=== PATIENT | female | born 1995 | race Caucasian/White ===

== ENCOUNTER 2024-01-20 12:01 | Outpatient (CLI) | payer BC, SELFPAY | END 2024-01-20 12:02 | disposition home or self-care (01) | LOC: NFLDREF 12:02 | PROVIDERS: Visit Provider Registered Nurse | DX: Z34.92 Encounter for supervision of normal pregnancy, unspecified, second trimester (principal) | CPT/HCPCS: 86592 ==

== ENCOUNTER 2024-02-10 13:37 | Outpatient (CLI) | payer BC, SELFPAY ==
--- NOTE | 2024-02-10 14:00 | CRLHL7_ITS ---
For Patients: As a result of the Century Cures Act, medical imaging exams and procedure reports are released immediately into your electronic medical record. You may view this report before your referring provider. If you have questions, please contact your health care provider. INDICATION: Evaluate anatomy. COMPARISON: none TECHNIQUE: Real time morejon scale imaging of the fetus was performed as well as color Doppler analysis of the umbilical vessels. FINDINGS: Sonographic imaging demonstrates a single living intrauterine gestation. Fetus demonstrates a regular cardiac rate of 144 beats per minute. Fetus has a vertex position. The placenta lies anteriorly without evidence of placenta previa. Placental edge 4.0 cm from the internal cervical os. Amniotic fluid volume appears normal. Single deepest vertical pocket: 5.0 cm. The cervix is closed and measures 3.1 cm in length. The composite ultrasound gestational age is calculated at 19 weeks 5 days with an estimated sonographic due date of 07/01/2024. The estimated weight is 311 grams which lies at the 31st %. The following biometric measurements were obtained: Biparietal diameter: 4.4 cm/19 weeks 3 days 24th% Head circumference: 17.2 cm/19 weeks 5 days 30th% Abdominal circumference: 14.5 cm/19 weeks 5 days 37th% Femur length: 3.1 cm/19 weeks 5 days 33rd% The HC/AC ratio measures: 1.19 range (1.08-1.26) On anatomic survey, there is a normal appearance of the cerebral ventricles, cavum septi pellucidi, cisterna magna and cerebellum. The nose, lips, and facial profile appear normal. The cervical, thoracic and lumbar spine are well visualized and appear normal. There is a normal four-chamber heart view and the left and right ventricular outflow tracts appear normal. The diaphragm and stomach appear normal. The kidneys and bladder also appear normal. There is a normal three-vessel cord and cord insertion site. The four extremities appear normal. IMPRESSION: Normal OB ultrasound exam with concordance of clinical and sonographic dating. No intrinsic abnormalities noted on anatomic survey. Dictated by Bryn Galvin MD @ 02/11/2024 7:36:11 AM (Electronically Signed)
== END 2024-02-10 13:38 | disposition home or self-care (01) ==
LOC: US 13:38
PROVIDERS: Visit Provider Registered Nurse
DX: Z34.92 Encounter for supervision of normal pregnancy, unspecified, second trimester (principal); Z3A.19 19 weeks gestation of pregnancy
CPT/HCPCS: 76805

== ENCOUNTER 2024-03-30 15:02 | Outpatient (CLI) | payer BC, SELFPAY ==
[2024-03-30 15:09] VITALS: BP 133/59; PULSE 109; PULSE 97; PULSE 98; O2SAT 93; O2SAT 95
[2024-03-30 15:14] VITALS: PULSE 91; O2SAT 96
[2024-03-30 15:17] VITALS: RESP 18; TEMP 37.5
[2024-03-30 15:19] VITALS: PULSE 95; O2SAT 97
[2024-03-30 16:23] VITALS: TEMP 36.6
== END 2024-03-30 18:08 | disposition home or self-care (01) ==
LOC: OB OUT 15:02 → OB 15:02
PROVIDERS: Visit Provider Midwife
DX: Z34.92 Encounter for supervision of normal pregnancy, unspecified, second trimester (principal); Z3A.27 27 weeks gestation of pregnancy
CPT/HCPCS: G0463

== ENCOUNTER 2024-04-05 10:59 | Outpatient (CLI) | payer BC, SELFPAY | END 2024-04-05 11:00 | disposition home or self-care (01) | LOC: NFLDREF 04-08 08:02 | PROVIDERS: Visit Provider Midwife | DX: Z34.03 Encounter for supervision of normal first pregnancy, third trimester (principal) | CPT/HCPCS: 86592 ==

== ENCOUNTER 2024-04-13 08:36 | Outpatient (CLI) | payer BC, SELFPAY | END 2024-04-13 08:37 | disposition home or self-care (01) | LOC: NFLDREF 04-18 07:02 | PROVIDERS: Visit Provider Midwife | DX: R73.09 Other abnormal glucose (principal) | CPT/HCPCS: 82951; 82952 ==

== ENCOUNTER 2024-05-27 15:08 | Inpatient (IN) | payer BC, SELFPAY ==
[2024-05-27] VITALS (51 sets, daily range): BP systolic 108–173; BP diastolic 53–77; PULSE 69–114; RESP 16; TEMP 36.6–37; O2SAT 93–98; BMI 40.4
--- NOTE | 2024-05-27 13:02 | P.OBLDTN_ITS ---
OB - Triage/Final Diagnosis Visit Information Date Seen: 05/27/24 Narrative: The patient is a 29 year old 1 para 0 at 35w2d weeks gestation by 1st tri US at 7wks, who presents with elevated BPs and headache with vision changes. She used her father's BP cuff last night and reports severe range BPs x 3, as well as this morning. She thought it was only because she was busy yesterday so did not notify us last evening and wanted to sleep. She reports REID with blurry vision for the last week intermittently and currently rating REID sith severity of 3-4/10. She states she just doesn't feel good and notes very significant swelling of her hands. Stat labs ordered, Tylenol given, serial BPs ordered. OB H&P Patient's care began at [facility] and transfered to [facility] at 17w gestion. She is dated by first trimester US. EDC is 06/29/2024. She has had routine visits since that time.?? PFSH PFSH Active Problems (Updated 05/18/24 @ 16:58 by Shruthi Mack CNM) Obesity (BMI 35.0-39.9 without comorbidity) (Acute) ?E66.9 - Obesity, unspecified (ICD-10) (Acute) ?Z34.90 - Encounter for supervision of normal , unspecified, unspecified trimester (ICD-10)ADHD (attention deficit hyperactivity disorder) (Acute) ?F90.9 - Attention-deficit hyperactivity disorder, unspecified type (ICD-10) Medical History (Updated 05/18/24 @ 16:58 by Shruthi Mack CNM) ADHD (attention deficit hyperactivity disorder) ?F90.9 - Attention-deficit hyperactivity disorder, unspecified type (ICD- 10)Migraine ?G43.909 - Migraine, unspecified, not intractable, without status migrainosus (ICD-10)H/O cold sores ?Z86.19 - Personal history of other infectious and parasitic diseases (ICD-10) Surgical History (Updated 01/21/24 @ 10:21 by Radhika Negron CNP) S/P LASIK surgery of both eyes ?Z98.890 - Other specified postprocedural states (ICD-10) Expected Delivery Route/Plan CNMWaterbirth: declines, interested in unmedicated with nitrous Control PP: condomsFeeding Plan: [place] meds AMTSL: Ok with Specific Issues/Plans ; Partner: Linda in December. It is a boy! #BMI>35: Consider weekly BPP &/or NST starting 37w: ok with this, ordered #Failed 1 hour gct (141), passed 3 hour gct #BP elevated at 29.5 weeks. Return visit the following day BP normotonsive Tx at 17.0 weeks gestation from [place] [facility] Labs (12/10/2023): Blood type: O+, antibody screen negative. Hgb: 13.7 Platelets: 243 Rubella: Immune Varicella: not Immune RPR: not done (completed later at [facility]) HBsAg: non-reactive Hep C: negative HIV: negative UC: negative GC/Chlamydia: negative/negative Pap (09/13/2023): NILM Genetic screening: Naterra-Low risk for aneuploidy Imagin11/12/23 7w1d: SLIUP LUIZ by this US of 06/29/2024 02/10/2024: Normal OB ultrasound exam with concordance of clinical and sonographic dating. No intrinsic abnormalities noted on anatomic survey. Evaluation Laboratory results: Laboratory Tests 05/27/24 05/27/24 Range/Units Unknown 12:49 WBC Pending RBC Pending Hgb Pending Hct Pending MCV Pending MCH Pending MCHC Pending Plt Count Pending BUN Pending Creatinine Pending Estimated GFR Pending AST Pending ALT Pending Urine Creatinine Pending Protein/Creatinin Ratio Pending Urine Total Protein Pending Vital signs: Vital Signs - 24 hr 05/27/24 12:20 05/27/24 12:30 05/27/24 12:31 Temperature 98.0 F Pulse Rate 114 H 93 Respiratory Rate 16 Blood Pressure 173/76 H 143/65 H 05/27/24 12:48 Temperature Pulse Rate 93 Respiratory Rate Blood Pressure 144/73 H Comments: Vitals Reviewed Constitutional:? Alert and oriented x3 HEENT:? Normocephalic, atraumatic Abdomen:? Soft, nontender, and gravid. Vertex by Abner's. Extremities:? No edema or erythema. Reflexes Left leg-+1/4, Right leg +3/4, neg clonus BLE Cervix: deferred NST: 1350bpm/moderate variability/accelerations present/decelerations absent/contractions intermittent, irregular and not felt by patient Final Diagnosis (1) Pre-eclampsia, severe: Status: Acute Problem details: PCR 2.0 with severe range blood pressure x 2. REID present. BMZ given. Dr Amaya consulted and transfer to OB service arranged. Planning admit, magnesium therapy, induction of labor, . SL placed on arrival. Other labs are normal. (2) : Status: Acute
[2024-05-27 13:16] LABS: Hematocrit 40.6 % (33.0-51.0); Hemoglobin* 13.4 gm/dL (12.0-16.0); Mean Corpuscular HGB Conc 33 gm/dL (32-36); Mean Corpuscular Hemoglobin 30 pg (26-34); Mean Corpuscular Volume 90 fL (80-100); Platelet Count* 203 K/uL (140-440); Red Blood Count 4.51 m/uL (4.00-5.20); White Blood Count* 9.96 K/uL (4.50-11.00)
[2024-05-27 13:20] LABS: Slide Review Reflex No
[2024-05-27 13:32] LABS: Alanine Aminotransferase* 18 U/L (4-35); Aspartate Amino Transferase* 25 U/L (12-35); Blood Urea Nitrogen* 16 mg/dL (5-24); Creatinine* 0.7 mg/dL (0.5-1.5); Estimated Glomerular Filt Rate 121 ml/min
[2024-05-27 13:32] LABS: Total Protein Urine 174 mg/dL
[2024-05-27 13:33] LABS: Protein Creatinine Ratio Urine 2.05 (0-0.19)
[2024-05-27] MEDS: BETAMETHASONE SOD PHOS/ACETATE 6 MG/ML ML 12 MG IM (14:05)
[2024-05-27] MEDS: LABETALOL HCL 5 MG/ML inj IVP (14:22)
[2024-05-27] MEDS: LACTATED RINGERS 1000 ML 1,000 ML 75 ML IV (14:30)
[2024-05-27] MEDS: MAGNESIUM IV 4 GM/100 ML PIGGYBACK IVPB (14:30)
--- NOTE | 2024-05-27 14:57 | P.OBCN_ITS ---
OB - CN: HPI Date of Consult Time Seen by Provider: 14:20 Date Seen: 05/27/24 Patient: [facility] Patient Consult date: 05/27/24 Requesting Physician: Abigail Harrison CNM Primary Care Provider: Not a Local Provider Consult Narrative Reason for consult: other (Severe pre-eclampsia) Narrative: The patient is a 29 year old G 1 P 0 at 35 2/7 weeks gestation that was admitted to the Center from triage for pre-eclampsia with severe features. Patient states that she was not feeling right last evening, and used her father's blood pressure cuff to check her blood pressure. She got a reading that was 180s systolic. This morning, she was out shopping and took her blood pressure at a pharmacy, and got another reading that was in the severe range, 160s systolic. She called the center and was evaluated in triage, where she had two more blood pressures in the severe range over 2-3 hours of monitoring. Labs were done, which were normal except for significant proteinuria. Diagnosis was made of preeclampsia with severe features. She does admit to increased swelling over the last week, and a persistent headache, unlike a migraine, with visual changes for the last two days. Her fetus remains active. History of Present Dating criteria: based on 1st trimester US only care: good care Ultrasounds: normal 1st trimester US and normal mid trimester US complications: preeclampsia Type: severe Medical Complications: BMI>35 Abnormal 1-h GTT with normal 3-h GTT elevated BP reading without diagnosis of hypertension History History 1 Elective abortions Para 0 Spontaneous abortions Hx # Term Pregnancies Ectopic pregnancies Hx # Pregnancies Multiple births Number of Living Children 0 Labs Blood type: O (+) positive Rubella: immune RPR/VDLR: nonreactive GBS status: unknown HBsAG: negative OB Labs: OB Labs (12/10/2023): Blood type: O+, antibody screen negative. Hgb: 13.7 Platelets: 243 Rubella: Immune Varicella: not Immune RPR: not done (completed later at [facility]) HBsAg: non-reactive Hep C: negative HIV: negative UC: negative GC/Chlamydia: negative/negative Pap (09/13/2023): NILM Genetic screening: Naterra-Low risk for aneuploidy Review of Systems Status of ROS: Reports: 10 or more systems reviewed and unremarkable except as noted in History and below PFSH PFSH Medical History ADHD (attention deficit hyperactivity disorder) ?F90.9 - Attention-deficit hyperactivity disorder, unspecified type (ICD-10) Migraine ?G43.909 - Migraine, unspecified, not intractable, without status migrainosus (ICD-10) H/O cold sores ?Z86.19 - Personal history of other infectious and parasitic diseases (ICD- 10) Surgical History S/P LASIK surgery of both eyes ?Z98.890 - Other specified postprocedural states (ICD-10) Social History Narrative: Working in a penitentiary. What is your current living situation?: I presently have a place to live Problems where you live: no known problems In the past 12 months, utilities in danger of being shut off: no In past 12 months, lack of transportation kept you from medical appts, meetings, work, or getting things needed for daily living: no In the past 12 mos, have been you worried that your food would run out before you had money to buy more?: never true In the past 12 mos, the food you bought just didn't last and you didn't have money to buy more?: never true Smoking Status: Never smoker How often does anyone, including family, friends and others, physically hurt you : never How often does anyone, including family, friends and others, insult or talk down to you: rarely How often does anyone, including family, friends and others, threaten you with h arm: never How often does anyone, including family, friends and others, scream or curse at you: never Little interest or pleasure in doing things: not at all Feeling down, depressed, or hopeless: not at all Meds Home Medications and Allergies Home Medications ?Medication ?Instructions ?Recorded ?Confirmed ?Type aspirin 81 mg tablet,delayed 81 mg PO QDAY 01/20/24 05/27/24 History release (Adult Aspirin Regimen) docosahexaenoic acid 200 mg 200 mg PO DAILY 01/20/24 05/27/24 History capsule ( DHA) valacyclovir 500 mg tablet 500 mg PO BID PRN 01/20/24 05/27/24 History (Valtrex) Allergies Allergy/AdvReac Type Severity Reaction Status Date / Time amoxicillin Allergy Mild Rash Verified 05/27/24 12:25 OB - H&P: Exam Physical Exam: Vital signs: Temp Pulse Resp BP 98.0 F 86 16 144/65 H 05/27/24 12:30 05/27/24 14:53 05/27/24 12:30 05/27/24 14:53 Constitutional: Constitutional: no acute distress Routine HEENT Exam: Head: Present normal inspection Eye: Present normal appearance Routine Neck Exam: Neck: Present full ROM Routine Respiratory Exam: Respiratory: Present CTA bilaterally; Absent crackles, rhonchi or wheezes Routine Cardiovascular Exam: Cardiovascular: RRR Routine Abdominal Exam: Abdominal: Present normal bowel sounds and soft; Absent tenderness Comments: Gravid, fundal height consistent with dates, vertex presentation by [place]'s Routine Exam: Comments: Normal external female genitalia. GBS swab obtained. Cervix posterior, moderate consistency, 1 cm dilated, 50% effaced, with vertex at a minus three station. Detailed Labor and Delivery Exam: Patient Gravid: Yes Dilation (cm): 1 Effacement (%): 50 Cervix position: posterior Consistency: medium Fetus (Single): Station: -3 Amniotic Membrane Status: intact Heart Rate Baseline: 140 Monitor Accelerations: Present Monitor Decelerations: None Mcfp Variability: Moderate (6-25) Routine Extremities Exam: Extremities: Present normal inspection; Absent calf tenderness or pedal edema Routine Psychiatric Exam: Present normal affect OB - Results Labs Labs: Short CBC 05/27/24 Range/Units 12:49 WBC 9.96 (4.50-11.00) K/uL Hgb 13.4 (12.0-16.0) gm/dL Hct 40.6 (33.0-51.0) % Plt Count 203 (140-440) K/uL BMP 05/27/24 12:49 BUN 16 Creatinine 0.7 Liver Function 05/27/24 Range/Units 12:49 AST 25 (12-35) U/L ALT 18 (4-35) U/L OB - CN: A/P Assessment and Plan (1) Pre-eclampsia, severe: Problem details: PCR 2.0 with severe range blood pressure x 2. REID present. BMZ given. Dr Amaya consulted and transfer to OB service arranged. Planning admit, magnesium therapy, induction of labor, . SL placed on arrival. Other labs are normal. Status: Acute (2) : Status: Acute Plan 1. Admit to Labor and Delivery. Patient's care will be transferred from [facility] to OB service. The patient and I discussed her diagnosis and the recommendation for induction labor. She understands that there is a possibility that her might need to be transferred to higher level of care following delivery if the infant has needs that can not be provided here at [facility]. 2. Magnesium sulfate IV for seizure prophylaxis per protocol. The medication risks and benefits were reviewed with the patient. 3. IV labetalol as needed to treat severe-range blood pressure p.r.n.. 4. Began cervical ripening in preparation for labor induction. Relative risks and benefits reviewed for both intravaginal or oral misoprostol and intracervical Cook catheter with slow Pitocin infusion. Will place a Cook catheter now and start slow Pitocin infusion at 9:00 p.m. this evening. 5. Dr. Arceo will assume care at 7:00 a.m. tomorrow morning. She has been notified. Total Time Spent Total time spent: 60 minutes
[2024-05-27] MEDS: MAGNESIUM Infusion 40 GM/1,000 ML IV.SOLN IVPB (15:15)
[2024-05-27 20:00] LABS: Mean Corpuscular HGB Conc 33 gm/dL (32-36); Mean Corpuscular Hemoglobin 30 pg (26-34); Mean Corpuscular Volume 90 fL (80-100); Platelet Count* 224 K/uL (140-440); Red Blood Count 4.66 m/uL (4.00-5.20); White Blood Count* 14.29 K/uL (4.50-11.00)
[2024-05-27 20:01] LABS: Slide Review Reflex No
[2024-05-27 20:19] LABS: Alanine Aminotransferase* 20 U/L (4-35); Aspartate Amino Transferase* 29 U/L (12-35); Blood Urea Nitrogen* 14 mg/dL (5-24); Creatinine* 0.7 mg/dL (0.5-1.5); Est. Creatinine Clearance* 90.29; Estimated Glomerular Filt Rate 121 ml/min
[2024-05-27] MEDS: OXYTOCIN 30 unit/500 ML in NS 30 UNIT/500 ML BAG IVPB (21:00)
--- NOTE | 2024-05-27 21:59 | PM.OBPNVD1 ---
OB - PN:Subj Subjective Date Seen: 05/27/24 OB - PN: Obj Exam Physical Exam: Vital signs: Temp Pulse Resp BP Pulse Ox 98.4 F 91 16 138/63 97 05/27/24 19:30 05/27/24 21:14 05/27/24 21:14 05/27/24 21:14 05/27/24 20:16 OB - PN: Obj Data Labs Labs: Laboratory Results - last 24 hr 05/27/24 05/27/24 05/27/24 12:49 19:32 Unknown WBC 9.96 14.29 H RBC 4.51 4.66 Hgb 13.4 14.0 Hct 40.6 42.0 MCV 90 90 MCH 30 30 MCHC 33 33 Plt Count 203 224 BUN 16 14 Creatinine 0.7 0.7 Estimated Creat Clear 90.29 Estimated GFR 121 121 AST 25 29 ALT 18 20 Urine Creatinine 85.0 Protein/Creatinin Ratio 2.05 H Urine Total Protein 174 Blood Type O Positive Antibody Screen NEGATIVE OB - PN: A/P Delivery Assessment and Plan (1) Pre-eclampsia, severe: Problem details: PCR 2.0 with severe range blood pressure x 2. REID present. BMZ given. Dr Amaya consulted and transfer to OB service arranged. Planning admit, magnesium therapy, induction of labor, . SL placed on arrival. Other labs are normal. Status: Acute (2) : Status: Acute
[2024-05-28] VITALS (39 sets, daily range): BP systolic 124–158; BP diastolic 55–91; PULSE 75–190; RESP 15–18; TEMP 36.4–37; O2SAT 82–97
[2024-05-28 01:03] LABS: Hematocrit 39.6 % (33.0-51.0); Hemoglobin* 13.4 gm/dL (12.0-16.0); Mean Corpuscular HGB Conc 34 gm/dL (32-36); Mean Corpuscular Hemoglobin 30 pg (26-34); Mean Corpuscular Volume 90 fL (80-100); Platelet Count* 204 K/uL (140-440); Red Blood Count 4.41 m/uL (4.00-5.20); White Blood Count* 14.26 K/uL (4.50-11.00)
[2024-05-28 01:04] LABS: Slide Review Reflex No
[2024-05-28 01:20] LABS: Creatinine* 0.8 mg/dL (0.5-1.5); Estimated Glomerular Filt Rate 103 ml/min
[2024-05-28 01:21] LABS: Alanine Aminotransferase* 21 U/L (4-35); Blood Urea Nitrogen* 16 mg/dL (5-24)
[2024-05-28 01:22] LABS: Aspartate Amino Transferase* 28 U/L (12-35)
[2024-05-28] MEDS: LACTATED RINGERS 1000 ML 1,000 ML 75 ML IV ×2 (03:31→18:57)
[2024-05-28 07:47] LABS: Hematocrit 40.4 % (33.0-51.0); Hemoglobin* 13.7 gm/dL (12.0-16.0); Mean Corpuscular HGB Conc 34 gm/dL (32-36); Mean Corpuscular Hemoglobin 31 pg (26-34); Mean Corpuscular Volume 90 fL (80-100); Platelet Count* 219 K/uL (140-440); Red Blood Count 4.48 m/uL (4.00-5.20); White Blood Count* 17.04 K/uL (4.50-11.00)
[2024-05-28 07:53] LABS: Slide Review Reflex No
[2024-05-28 08:02] LABS: Aspartate Amino Transferase* 31 U/L (12-35); Blood Urea Nitrogen* 17 mg/dL (5-24); Creatinine* 0.7 mg/dL (0.5-1.5); Est. Creatinine Clearance* 90.29; Estimated Glomerular Filt Rate 121 ml/min
[2024-05-28 08:03] LABS: Alanine Aminotransferase* 21 U/L (4-35)
--- NOTE | 2024-05-28 09:52 | P.OBPN_ITS ---
Subjective Time Seen by Provider: 08:30 Date Seen: 05/28/24 Narrative: Pt with PreEwSF based on severe ranging BP requiring 20mg of labetalol yesterday. Currently on magnesium sulfate for seizure prophylaxis. Blood pressure overnight: normal to mild ranging BP. Denies any persistent headache, vision changes, SOB, right upper quadrant/epigastric pain, or rapidly expanding edema. PreE labs within normal limits. Objective Vital Signs: Last Vital Signs Temp 98 F 05/28/24 09:23 Pulse 92 05/28/24 09:23 Resp 17 05/28/24 09:23 BP 144/71 H 05/28/24 09:23 Pulse Ox 96 05/28/24 09:25 Pelvic Exam Dilation (cm): 4 Effacement (%): 50 Station: -2 Comments: Patient consented to AROM AROM@ 0833 with clear fluid. Patient tolerated it well. Contractions Monitor mode: External Contraction pattern: Irregular Contraction intensity: Mild Pitocin Rate (mU/min): 12 Assessment Assessment: induction ongoing Station: -2 Status: Category l Heart Rate Baseline: 140 Senior Living Variability: Moderate (6-25) Monitor Accelerations: Present Monitor Decelerations: None
[2024-05-28] MEDS: CALCIUM CARBONATE 500 MG CHEW PO (11:19)
[2024-05-28] MEDS: MAGNESIUM Infusion 40 GM/1,000 ML IV.SOLN IVPB (11:51)
[2024-05-28] MEDS: LIDOCAINE 1 % PF 30 ML INJECTION (12:25)
[2024-05-28] MEDS: fentaNYL 100 MCG/2 ML inj IVP (12:30)
[2024-05-28 13:32] LABS: Strep B DNA Probe Negative (Negative)
--- NOTE | 2024-05-28 13:33 | W.PM.VAGDEL1 ---
Procedure Delivery date: 05/28/24 Procedure Done: Global Events: Labor < 37 Weeks and Pre-Eclampsia (with severe features ) Intrapartal Events: Labor Induction Delivery monitor: external FHT Route of delivery: Laceration description: Perineal - 2nd Degree Delivery repair: Vicryl Anesthesia type: Local Disposition: floor Complications: None Narrative: Penny is a 29 year-old admitted on 05/27/24 at 35 and 2/7 weeks gestation for pre-eclampsia with severe features based on severe ranging blood pressure requiring IV antihypertensive. GBS unk, vancomycin used for GBS ppx But GBS came back negative later on in the day. Labor Analgesia: None. 50mcg of fentanyl and 1% lidocaine for laceration repair. Pitocin: Yes for induction of labor. AROM: May 28 at 0833, with clear fluid Labor onset: 05/28 at 0900 Complete: 05/28 at 1203 Pushin/26 at 1213 heart tones during second stage were II with intermittent variables. Difficult to keep fetus on the monitor due to habitus, movements, and patient wanted to deliver standing. Rapid descent with pushing. At 1214 a viable male infant delivered in vertex OA presentation over intact via spontaneous vaginal delivery. The infant's body was delivered in the usual manner without difficulty. The was placed on maternal abdomen. The cord was clamped and cut after a 30-60 second delay. The nose and mouth were bulb suctioned. weight: 5lb 4oz. 7 at 1 minute and 9 at 5 minutes. Shoulder dystocia: No. Nuchal cord: x 1. Loose and reduced Placenta delivered spontaneously and complete at 1221 with a 3-vessel cord. Placenta examined and noted to be complete. The cervix and vagina were inspected for lacerations, and vaginal laceration was noted. Laceration(s): 2nd degree, repaired with 2-0 vicryl in a continuous manner Complications: None Quantitative blood loss: 270 cc Cord gases sent due to , magnesium sulfate exposure Sponge and needles counts are correct. Mother and infant were stable at the time of this note. Infant Gender: Male presentation: vertex Placental Delivery Description: Spontaneous Cord Description: 3 Vessels
[2024-05-28] MEDS: ACETAMINOPHEN 500 MG TABLET 1000 MG PO ×2 (13:46→19:50)
[2024-05-28 13:50] LABS: Strep B Susceptibility Needed? No
[2024-05-28 13:54] LABS: Hematocrit 40.2 % (33.0-51.0); Hemoglobin* 13.3 gm/dL (12.0-16.0); Mean Corpuscular HGB Conc 33 gm/dL (32-36); Mean Corpuscular Hemoglobin 30 pg (26-34); Mean Corpuscular Volume 91 fL (80-100); Platelet Count* 228 K/uL (140-440); Red Blood Count 4.42 m/uL (4.00-5.20)
[2024-05-28 13:55] LABS: Slide Review Reflex No
[2024-05-28 14:11] LABS: Alanine Aminotransferase* 20 U/L (4-35); Aspartate Amino Transferase* 28 U/L (12-35); Blood Urea Nitrogen* 17 mg/dL (5-24); Creatinine* 0.8 mg/dL (0.5-1.5); Estimated Glomerular Filt Rate 103 ml/min
[2024-05-28] MEDS: IBUPROFEN 600 MG TABLET PO ×2 (15:29→23:40)
[2024-05-29] VITALS (10 sets, daily range): BP systolic 128–144; BP diastolic 72–84; PULSE 72–84; RESP 15–16; TEMP 36.3–36.5; O2SAT 96–98
[2024-05-29] MEDS: ACETAMINOPHEN 500 MG TABLET 1000 MG PO ×3 (03:16→18:41)
[2024-05-29 07:21] LABS: Basophils Percent Auto 0.1 % (0.0-3.0); Eosinophils Percent Auto 0.1 % (0.0-7.0); Hematocrit 35.9 % (33.0-51.0); Hemoglobin* 11.7 gm/dL (12.0-16.0); Immature Granulocytes Pct Auto 0.5 %; Lymphocytes Percent Auto 11.4 % (20-44); Mean Corpuscular HGB Conc 33 gm/dL (32-36); Mean Corpuscular Hemoglobin 30 pg (26-34); Mean Corpuscular Volume 93 fL (80-100); Monocytes Percent Auto 5.6 % (0.0-11.0); Neutrophils Percent Auto 82.3 % (42.0-72.0); Platelet Count* 204 K/uL (140-440); RDW Coefficient of Variation % 15.1 % (11.5-15.5); Red Blood Count 3.86 m/uL (4.00-5.20); White Blood Count* 14.23 K/uL (4.50-11.00)
[2024-05-29 07:24] LABS: Slide Review Reflex No
[2024-05-29 07:41] LABS: Creatinine* 0.8 mg/dL (0.5-1.5); Estimated Glomerular Filt Rate 103 ml/min
[2024-05-29 07:42] LABS: Alanine Aminotransferase* 19 U/L (4-35); Aspartate Amino Transferase* 26 U/L (12-35); Blood Urea Nitrogen* 16 mg/dL (5-24)
[2024-05-29] MEDS: MAGNESIUM Infusion 40 GM/1,000 ML IV.SOLN IVPB (07:56)
[2024-05-29] MEDS: DOCUSATE SODIUM 100 MG CAPSULE PO (08:38)
[2024-05-29] MEDS: IBUPROFEN 600 MG TABLET PO ×2 (08:39→16:18)
--- NOTE | 2024-05-29 09:50 | PM.OBPNVD1 ---
OB - PN:Subj Subjective Time Seen by Provider: 09:00 Date Seen: 05/29/24 Narrative: Overnight patient had complaints of fatigue and feeling foggy on Magnesium sulfate. She's excited to get it discontinued soon so she can be more alert. Her pain is well controlled on oral pain medications. She is tolerating a regular diet. She has passed flatus. She is ambulating without difficulty. Lochia is scant. She is urinating without preciado. Patient denies chest pain, SOB, n/v, headache, RUQ pain, vision changes, dizziness. OB - PN: Obj Exam Physical Exam: Vital signs: Temp Pulse Resp BP Pulse Ox O2 Del Method 97.7 F 82 16 144/83 H 96 Room Air 05/29/24 08:02 05/29/24 08:02 05/29/24 08:02 05/29/24 08:02 05/29/24 08:02 05/29/24 08:02 Narrative: Physical exam: General: No acute distress Psych: Alert and oriented x4, full affect HEENT: Normocephalic, atraumatic Heart: Regular rate and rhythm, no murmur rub or gallop Lungs: Clear to auscultation bilaterally Abdomen: Normoactive bowel sounds, soft, no tenderness, rebound, or guarding. Uterus firm 2 cm below the umbilicus Skin: No lesions or rashes Lower extremities: 1+ bilateral lower extremity edema Pelvic exam: Scant bleeding on pad OB - PN: Obj Data Labs Labs: Laboratory Results - last 24 hr 05/27/24 05/28/24 05/29/24 15:27 13:40 07:08 WBC 24.20 H 14.23 H RBC 4.42 3.86 L Hgb 13.3 11.7 L Hct 40.2 35.9 MCV 91 93 MCH 30 30 MCHC 33 33 RDW Coeff of Franck 15.1 Plt Count 228 204 Neut % (Auto) 82.3 H Lymph % (Auto) 11.4 L Sargent % (Auto) 5.6 Eos % (Auto) 0.1 Baso % (Auto) 0.1 Neut # (Auto) 11.70 H Lymph # (Auto) 1.60 Sargent # (Auto) 0.80 Eos # (Auto) 0.00 Baso # (Auto) 0.00 Abs Immat Gran (auto) 0.10 Imm/Tot Granulo (auto) 0.5 BUN 17 16 Creatinine 0.8 0.8 Estimated Creat Clear 79.00 79.00 Estimated GFR 103 103 AST 28 26 ALT 20 19 Group B Strep DNA Negative OB - PN: A/P Delivery Assessment and Plan (1) Pre-eclampsia, severe: Problem details: PCR 2.0 with severe range blood pressure x 2. REID present. BMZ given. Dr Amaya consulted and transfer to OB service arranged. Planning admit, magnesium therapy, induction of labor, . SL placed on arrival. Other labs are normal. Status: Acute (2) : Status: Acute Assessment and Plan: Pre-Eclampsia with severe features - Based on severe ranging BP requiring IV antihypertensives - BPs after delivery: 120-130s/60-80s, only 3 values in 140s/80s - Symptoms: Headache, resolves with tylenol - Magnesium: currently on Magnesium for seizure ppx, will continue for 24 hours after delivery - IV antihypertensives: Currently not indicdated - Pre-eclampsia labs on 05/29: Hgb 11.7 Plt 204 Cr 0.8 ALT 19 AST 26 - UOP: 3.10 cc/kg/hr - Plan: will continue Mag sulfate until 24 hours after delivery and monitor BP for 24 hours after that. Will hold on starting oral antihypertensive for now and continue to monitor BP.
[2024-05-30] VITALS (10 sets, daily range): BP systolic 120–145; BP diastolic 72–88; PULSE 61–86; RESP 15–18; TEMP 36.5–37; O2SAT 96–97
[2024-05-30] MEDS: IBUPROFEN 600 MG TABLET PO ×2 (02:31→12:01)
[2024-05-30 04:04] LABS: Rapid Plasma Reagin (RPR) Non Reactive (Non Reactive)
--- NOTE | 2024-05-30 07:21 | P.DS_ITS ---
DS: Providers Provider Date Seen: 05/30/24 Date of admission: 05/27/24 15:08 Primary care physician: Not a Local Provider Admitting Clinician: Rosalee Amaya MD Attending Physician on discharge: Jg EPSTEIN Date of Discharge: 05/30/24 DS: Diagnosis Discharge Diagnosis (1) Pre-eclampsia, severe: Status: Acute Problem details: PCR 2.0 with severe range blood pressure x 2. REID present. BMZ given. Dr Amaya consulted and transfer to OB service arranged. Planning admit, magnesium therapy, induction of labor, . SL placed on arrival. Other labs are normal. (2) Obesity (BMI 35.0-39.9 without comorbidity): Status: Acute (3) delivery: Status: Acute (4) Encounter for care of lactating mother: Status: Acute (5) ADHD (attention deficit hyperactivity disorder): Status: Acute Exam Narrative: Exam Narrative: GENERAL APPEARANCE:? normal affect, alert, no distress MOOD:? appropriate CHEST:? clear to auscultation HEART:? regular rate and rhythm ABDOMEN:? soft, non-tender the uterine fundus is At Umbilicus, Midline and is appropriate for the stage of recovery. PERINEUM:? minimal edema of the perineum, there is a Perineal Laceration at an appropriate stage of healing with no erythema noted EXTREMITIES:? normal and moderate edema. Reflexes +2/4 with negative clonus Const: Vital Signs, click to edit/add: Vital Signs - 24 hr 05/29/24 08:02 05/29/24 11:00 05/29/24 12:20 Temperature 97.7 F 97.5 F L 97.3 F L Pulse Rate [Blood Pressure Cuff] 82 78 84 Respiratory Rate 16 16 16 Blood Pressure [Ri ght Arm] 144/83 H 143/83 H 133/80 Pulse Oximetry 96 96 97 Oxygen Delivery Me thod Room Air Room Air Room Air 05/29/24 16:05 05/29/24 21:13 05/30/24 02:40 Temperature 97.7 F 97.7 F 97.7 F Pulse Rate [Blood Pressure Cuff] 72 76 61 Respiratory Rate 16 16 15 Blood Pressure [Ri ght Arm] 128/80 132/80 131/79 Pulse Oximetry 97 97 97 Oxygen Delivery Me thod Room Air Room Air Room Air 05/30/24 06:15 Temperature 97.7 F Pulse Rate [Blood Pressure Cuff] 66 Respiratory Rate 16 Blood Pressure [Ri ght Arm] 135/82 Pulse Oximetry 97 Oxygen Delivery Me thod Room Air OB - DS: Summary Hospital Course Hospital Course: Penny is a 29 y.o. G 1 P 1001 who was admitted to [facility] for IOL for severe Pre- eclampsia .? She had a NVD that was uncomplicated. She recieved Magnesium and BP medication. The patient feels well.? The pain is well controlled with current medications.? She has no new complaints.? She is breast feeding and r eports things are slow. She is supplementing post breast feed, but baby did need supplement IV for D10 yesterday. He is weaning it. the patient has done well.? Vitals have been stable.? She has remained afebrile.? Has a good appetite, is tolerating a general diet.? She is voiding without difficulty.? She is passing gas and has not had a bowel movement.? She is ambulating and denies any dizziness.? Has small amount of rubra lochia. She is planning condoms or other forms of hormonal control for prevention.? ?? Problems: Severe Pre-e: magnesium stopped and she has remained stable. ?? plan:? Discharge home with baby or stay as house guest until he is discharged.? Follow up in 2 days, 2 weeks and 6 weeks.? , may see if needed? Hgb 11.7. ? Severe [id number]-[id number] with normal BP Take home cuff to be given to patient with twice daily checks Labs WNL or stable with trending? Discharge home with BP cuff if does not already have one? Follow up in clinic 06/01 for a BP check Call for signs/symptoms of preeclampsia? Peripartum Data Infant delivery method: Vaginal Laceration description: Perineal - 2nd Degree Episiotomy description: None complications: none Rewey Gender: Male Discharge Plan: Home (eventually) Status at Discharge Overall status at discharge: patient is progressing back to baseline Time Spent with Patient Time attestation: Total time spent providing and/or coordinating discharge services: Time spent: Less than 30 minutes Discharge Plan Discharge Disposition: Home, Self-Care Date of Admission: 05/27/24 15:08 Attending Provider on Discharge: Abigail Harrison Primary Care Provider: Provider,Not a Local Discharge Medications: New docusate sodium 100 mg Capsule 100 mg PO .two times daily PRNQty: 60 0RF Continued DHA 200 mg capsule 200 mg PO DAILY Discontinued metoclopramide HCl [Reglan] 5 mg tablet 5 mg PO Q6H PRN (Reason: nausea and vomiting) Qty: 10 1RF aspirin [Adult Aspirin Regimen] 81 mg tablet,delayed release (DR/EC) 81 mg PO QDAY valacyclovir [Valtrex] 500 mg tablet 500 mg PO BID PRN Discharge Orders: Discharge Order (Routine); Ordered 05/30/24 Ordered By: Abigail Harrison Patient Education: OB Care, OB Vaginal/Breast Feeding Additional Instructions: Discharge instructions were reviewed with the patient including signs and symptoms of infection and home going medications Nothing vaginally for 6 weeks: no tampons or intercourse Do not drive while taking narcotic pain medication(s) Off Work or School for 6 weeks Symptoms to report to doctor: * Bleeding that saturates more than one pad per hour * Passing clots larger than the size of a golf ball * Pain not relieved by prescribed medication * Fever above 100.4 degrees Fahrenheit * A foul vaginal odor * Difficulty in emotions, mood, and functions * Thoughts of hurting yourself and/or * Painful, reddened area in your breast * Any drainage, redness, or tenderness in your IV/epidural site * Severe headache that doesn't improve after taking medications * Changes in vision, including temporary loss of vision, blurred vision, and/or light sensitivity * Upper abdominal pain (usually under ribs on the right side) * Decrease in urination or painful, frequent urinating * Chest pain * Shortness of breath * Tenderness or pain with redness and/swelling in the calf(s) of your leg [facility] BP check?06/01/2024 Check BP at home twice daily or more often if symptoms Call immediately with BP greater than or equal to 160/110 or with symptoms 2-week visit: discuss infant feeding concerns, review control options and screen for anxiety/depression. 6-week visit for an annual exam. consultation services are available to all mothers and babies for the first year after delivery.? To make an appointment, please call [phone]. For pain control of perineum, breast and pelvic pain, take 600 mg Ibuprofen every 6 hours as needed by mouth or 1000 mg acetaminophen (Tylenol) every 6 hours by mouth as needed. You can alternate these so you are taking something every 3 hours as needed. A heating pad can also be used for your abdomen or breasts.? Activity Level: Activity as Tolerated and No strenuous activity Discharge Diet: Regular Follow Up Appointments: [facility] [Provider Group[facility] Info Instructions
--- NOTE | 2024-05-30 08:08 | PM.OBPNVD1 ---
OB - PN:Subj Subjective Time Seen by Provider: 07:50 Date Seen: 05/30/24 Interval history: Penny is a 29yo seen on PPD2 after following IOL for preeclampsia with severe features. She is s/p 24 hours of magnesium sulfate for seizure prophylaxis, ending 05/29 at 1200. This morning, she is feeling well with no acute concerns. Denies headache, vision changes or RUQ pain. Extremities notable for mild pitting edema bilaterally. She notes edema is exacerbated by walking but readily improves with elevation. Robust UOP continues, has voided 2.55L since midnight. Blood pressures in the last 24 hours have been in the normal to low midl range. She has been entirely normotensive since 1220 yesterday. She does not meet criteria for antihypertensive therapy at this time. OB - PN: Obj Exam Physical Exam: Vital signs: Temp Pulse Resp BP Pulse Ox O2 Del Method 97.7 F 66 16 135/82 97 Room Air 05/30/24 06:15 05/30/24 06:15 05/30/24 06:15 05/30/24 06:15 05/30/24 06:15 05/30/24 06:15 Narrative: VS, UOP and labs reviewed. General: Alert and oriented, in no acute distress Psych: Appropriate mood and affect Extremities: Trace pitting edema to the shins bilaterally. No calf erythema or tenderness. Remainder of physical exam per Radames Harrison CNM. OB - PN: Obj Data Labs Labs: Laboratory Results - last 24 hr 05/27/24 19:32 RPR Screen Non Reactive OB - PN: A/P Delivery Assessment and Plan (1) Pre-eclampsia, severe: Problem details: PCR 2.0 with severe range blood pressure x 2. REID present. BMZ given. Dr Amaya consulted and transfer to OB service arranged. Planning admit, magnesium therapy, induction of labor, . SL placed on arrival. Other labs are normal. Status: Acute (2) Obesity (BMI 35.0-39.9 without comorbidity): Status: Acute (3) delivery: Status: Acute (4) Encounter for care of lactating mother: Status: Acute (5) ADHD (attention deficit hyperactivity disorder): Status: Acute Plan day: 2 Plan: discharge home Comments: Penny is a 29yo seen on PPD2 from following IOL for preE with SF (severe range BPs). She has been primarily normotensive since delivery, not on any antihypertensive medications. She has no headache, vision chagnes or RUQ pain. Robust diuresis is ongoing. She is s/p 24 hours of Mag Sulfate as of 05/29 at 1200. Anticipate DC to home today. Discussed close interval follow up in the clinic with BP check on Thursday. Cuff will be provided, counseling on home BP monitoring given. Strict return precautions reinforced. Remainder per Discharge Summary per Radames Harrison CNM.
[2024-05-30] MEDS: DOCUSATE SODIUM 100 MG CAPSULE PO (08:42)
[2024-05-30] MEDS: ACETAMINOPHEN 500 MG TABLET 1000 MG PO (16:11)
[2024-05-30] MEDS: NIFEdipine 30 MG TAB.ER.24 PO (16:22)
[2024-05-31] VITALS (9 sets, daily range): BP systolic 125–151; BP diastolic 75–86; PULSE 72–92; RESP 14–16; TEMP 36.8–37; O2SAT 95–98
[2024-05-31] MEDS: ACETAMINOPHEN 500 MG TABLET 1000 MG PO ×2 (00:15→10:33)
[2024-05-31 04:34] LABS: Hematocrit 38.1 % (33.0-51.0); Hemoglobin* 12.3 gm/dL (12.0-16.0); Mean Corpuscular HGB Conc 32 gm/dL (32-36); Mean Corpuscular Hemoglobin 30 pg (26-34); Mean Corpuscular Volume 94 fL (80-100); Platelet Count* 184 K/uL (140-440); Red Blood Count 4.07 m/uL (4.00-5.20); White Blood Count* 11.62 K/uL (4.50-11.00)
[2024-05-31 04:38] LABS: Slide Review Reflex No
[2024-05-31] MEDS: IBUPROFEN 600 MG TABLET PO ×2 (04:40→19:35)
[2024-05-31 04:49] LABS: Alanine Aminotransferase* 37 U/L (4-35); Aspartate Amino Transferase* 55 U/L (12-35); Creatinine* 0.7 mg/dL (0.5-1.5); Est. Creatinine Clearance* 90.29; Estimated Glomerular Filt Rate 121 ml/min
[2024-05-31] MEDS: NIFEdipine 30 MG TAB.ER.24 PO ×2 (08:35→20:47)
[2024-05-31] MEDS: DOCUSATE SODIUM 100 MG CAPSULE PO (08:36)
--- NOTE | 2024-05-31 10:22 | P.DS_ITS ---
DS: Providers Provider Date Seen: 05/31/24 Date of admission: 05/27/24 15:08 Primary care physician: Not a Local Provider Admitting Clinician: Rosalee Amaya MD Attending Physician on discharge: Padma Baltazar MD Date of Discharge: 05/31/24 DS: Diagnosis Discharge Diagnosis (1) delivery: Status: Acute (2) Pre-eclampsia, severe: Status: Acute (3) Spontaneous vaginal delivery: Status: Acute Exam Const: Vital Signs, click to edit/add: Vital Signs - 24 hr 05/30/24 12:07 05/30/24 12:17 05/30/24 15:45 Temperature 98.3 F 98.3 F Pulse Rate [Blood Pressure Cuff] 73 73 Respiratory Rate 16 16 Blood Pressure [Ri ght Arm] 145/88 H 130/82 145/80 H Pulse Oximetry 96 Oxygen Delivery Me thod Room Air Room Air 05/30/24 15:55 05/30/24 19:29 05/30/24 19:46 Temperature 98.6 F Pulse Rate [Blood Pressure Cuff] 72 Respiratory Rate 16 Blood Pressure [Ri ght Arm] 142/84 H 142/87 H 132/72 Pulse Oximetry Oxygen Delivery Me thod Room Air 05/30/24 23:47 05/31/24 00:03 05/31/24 04:23 Temperature 98.3 F 98.6 F Pulse Rate [Blood Pressure Cuff] 86 72 Respiratory Rate 18 16 Blood Pressure [Ri ght Arm] 141/82 H 142/86 H 138/81 Pulse Oximetry 98 Oxygen Delivery Me thod Room Air Room Air 05/31/24 08:30 Temperature 98.5 F Pulse Rate [Blood Pressure Cuff] 82 Respiratory Rate 16 Blood Pressure [Ri ght Arm] 142/84 H Pulse Oximetry 95 Oxygen Delivery Me thod Room Air OB - DS: Summary Hospital Course Hospital Course: Penny is a 29-year-old G1 now P 0-1-0-1 woman who is status post normal spontaneous vaginal delivery on 05/28/2024 at 35 weeks, 3 days gestation after an induction of labor for preeclampsia with severe features based on blood pressure criteria. She had an uncomplicated spontaneous vaginal delivery. She delivered a viable male . She had a second-degree perineal laceration. She is [breast/bottle] feeding. the patient has done well. She received magnesium sulfate infusion until 24 hours . Over the last 24 hours, highest blood pressures have been 140s over 80s. Most recently, she is maintained on nifedipine 30 mg b.i.d.. She had repeat HELLP labs this morning. Her AST and ALT are newly elevated, but neither in the severe range. Creatinine was normal at 0.7 and her platelets are normal. Infant Gender: Male Discharge Plan: Home (eventually) Time Spent with Patient Time attestation: Total time spent providing and/or coordinating discharge services: Discharge Plan Discharge Disposition: Home, Self-Care Date of Admission: 05/27/24 15:08 Attending Provider on Discharge: Abigail Harrison Discharge Medications: New docusate sodium 100 mg Capsule 100 mg PO .two times daily PRNQty: 60 0RF nifedipine 30 mg tablet extended release 30 mg PO DAILY Qty: 30 1RF Continued DHA 200 mg capsule 200 mg PO DAILY Discontinued metoclopramide HCl [Reglan] 5 mg tablet 5 mg PO Q6H PRN (Reason: nausea and vomiting) Qty: 10 1RF aspirin [Adult Aspirin Regimen] 81 mg tablet,delayed release (DR/EC) 81 mg PO QDAY valacyclovir [Valtrex] 500 mg tablet 500 mg PO BID PRN Patient Education: OB [place] Care, OB Vaginal/Breast Feeding Additional Instructions: Discharge instructions were reviewed with the patient including signs and symptoms of infection and home going medications Nothing vaginally for 6 weeks: no tampons or intercourse Do not drive while taking narcotic pain medication(s) Off Work or School for 6 weeks Symptoms to report to doctor: * Bleeding that saturates more than one pad per hour * Passing clots larger than the size of a golf ball * Pain not relieved by prescribed medication * Fever above 100.4 degrees Fahrenheit * A foul vaginal odor * Difficulty in emotions, mood, and functions * Thoughts of hurting yourself and/or * Painful, reddened area in your breast * Any drainage, redness, or tenderness in your IV/epidural site * Severe headache that doesn't improve after taking medications * Changes in vision, including temporary loss of vision, blurred vision, and/or light sensitivity * Upper abdominal pain (usually under ribs on the right side) * Decrease in urination or painful, frequent urinating * Chest pain * Shortness of breath * Tenderness or pain with redness and/swelling in the calf(s) of your leg [facility] for a BP check?06/01/2024 Check BP at home twice daily or more often if symptoms Call immediately with BP greater than or equal to 160/110 or with symptoms 2-week visit: discuss infant feeding concerns, review control options and screen for anxiety/depression. 6-week visit for an annual exam. consultation services are available to all mothers and babies for the first year after delivery.? To make an appointment, please call [phone]. For pain control of perineum, breast and pelvic pain, take 600 mg Ibuprofen every 6 hours as needed by mouth or 1000 mg acetaminophen (Tylenol) every 6 hours by mouth as needed. You can alternate these so you are taking something every 3 hours as needed. A heating pad can also be used for your abdomen or breasts.? Activity Level: Activity as Tolerated and No strenuous activity Discharge Diet: Regular Follow Up Appointments: [facility] [Provider Group] Forms: [facility] Info Instructions
[2024-05-31 11:03] LABS: Basophils Percent Auto 0.4 % (0.0-3.0); Eosinophils Percent Auto 2.2 % (0.0-7.0); Hematocrit 42.9 % (33.0-51.0); Hemoglobin* 13.9 gm/dL (12.0-16.0); Immature Granulocytes Pct Auto 0.4 %; Lymphocytes Percent Auto 12.4 % (20-44); Mean Corpuscular HGB Conc 32 gm/dL (32-36); Mean Corpuscular Hemoglobin 30 pg (26-34); Mean Corpuscular Volume 94 fL (80-100); Monocytes Percent Auto 5.9 % (0.0-11.0); Neutrophils Percent Auto 78.7 % (42.0-72.0); Platelet Count* 228 K/uL (140-440); RDW Coefficient of Variation % 14.5 % (11.5-15.5); Red Blood Count 4.59 m/uL (4.00-5.20); Slide Review Reflex No; White Blood Count* 11.89 K/uL (4.50-11.00)
[2024-05-31 11:19] LABS: Alanine Aminotransferase* 71 U/L (4-35); Aspartate Amino Transferase* 100 U/L (12-35); Blood Urea Nitrogen* 13 mg/dL (5-24); Creatinine* 0.8 mg/dL (0.5-1.5); Estimated Glomerular Filt Rate 103 ml/min
[2024-05-31] MEDS: hydrOXYzine pamoate 25 MG CAPSULE 100 MG PO (13:15)
[2024-05-31 16:00] LABS: Hematocrit 40.2 % (33.0-51.0); Hemoglobin* 13.3 gm/dL (12.0-16.0); Mean Corpuscular HGB Conc 33 gm/dL (32-36); Mean Corpuscular Hemoglobin 31 pg (26-34); Mean Corpuscular Volume 92 fL (80-100); Platelet Count* 203 K/uL (140-440); Red Blood Count 4.36 m/uL (4.00-5.20); White Blood Count* 11.31 K/uL (4.50-11.00)
[2024-05-31 16:26] LABS: Slide Review Reflex No
[2024-05-31 16:31] LABS: Creatinine* 0.7 mg/dL (0.5-1.5); Est. Creatinine Clearance* 90.29; Estimated Glomerular Filt Rate 121 ml/min
[2024-05-31 16:32] LABS: Alanine Aminotransferase* 95 U/L (4-35); Aspartate Amino Transferase* 125 U/L (12-35); Blood Urea Nitrogen* 13 mg/dL (5-24)
--- NOTE | 2024-05-31 16:41 | P.OBPN_ITS ---
OB - PN:Subj Subjective Date Seen: 05/31/24 Interval history: Penny is a 29-year-old G1 now P 0-1-0-1 woman who is status post normal spontaneous vaginal delivery on 05/28/2024 at 35 weeks, 3 days gestation after an induction of labor for preeclampsia with severe features based on blood p ressure criteria. She had an uncomplicated spontaneous vaginal delivery. She delivered a viable male infant. She had a second-degree perineal laceration. She is breast/bottle feeding. She received magnesium sulfate infusion until 24 hours , ending at noon on 05/29. Over the last 24 hours, highest blood pressures have been 140s over 80s. Most recently, she is maintained on nifedipine 30 mg b.i.d.. She had repeat HELLP labs this morning. Her AST and ALT are newly elevated, but neither in the severe range. Creatinine was normal at 0.7 and her platelets are normal. She is feeling anxious about her health and taking care of her baby. She has a mild headache. She otherwise has no complaints. She denies any right upper quadrant pain or visual changes. Her infant fails car seat test after our interview this morning. OB - PN: Obj Exam Physical Exam: Vital signs: Temp Pulse Resp BP Pulse Ox O2 Del Method 98.3 F 91 14 139/84 95 Room Air 05/31/24 12:47 05/31/24 12:47 05/31/24 12:47 05/31/24 12:51 05/31/24 12:47 05/31/24 12:47 Narrative: General: Pleasant, no acute distress Heart: Regular rate and rhythm, no murmur or gallop Lungs: Clear to auscultation bilaterally Abdomen: Soft, nontender, fundus well below umbilicus Lower extremities: 1+ edema bilaterally, no erythema OB - PN: Obj Data Labs Labs: Laboratory Results - last 24 hr 05/31/24 05/31/24 05/31/24 04:25 10:54 15:55 WBC 11.62 H 11.89 H 11.31 H RBC 4.07 4.59 4.36 Hgb 12.3 13.9 13.3 Hct 38.1 42.9 40.2 MCV 94 94 92 MCH 30 30 31 MCHC 32 32 33 RDW Coeff of Franck 14.5 Plt Count 184 228 203 Neut % (Auto) 78.7 H Lymph % (Auto) 12.4 L [place] % (Auto) 5.9 Eos % (Auto) 2.2 Baso % (Auto) 0.4 Neut # (Auto) 9.40 H Lymph # (Auto) 1.50 [place] # (Auto) 0.70 Eos # (Auto) 0.30 Baso # (Auto) 0.00 Abs Immat Gran (auto) 0.00 Imm/Tot Granulo (auto) 0.4 BUN 13 13 Creatinine 0.7 0.8 0.7 Estimated Creat Clear 90.29 79.00 90.29 Estimated GFR 121 103 121 AST 55 H 100 H 125 H ALT 37 H 71 H 95 H OB - PN: A/P Delivery Assessment and Plan (1) delivery: Status: Acute Assessment and Plan: did not pass car seat test this morning. (2) Pre-eclampsia, severe: Status: Acute Assessment and Plan: Status post 24 hours of magnesium sulfate. Her transaminases began to show elevation this morning, and have continued to climb. Her blood pressures have remained primarily in the mildly elevated range, with an occasional normal value. This is despite treatment with nifedipine 30 mg b.i.d.. I am going to add labetalol 100 mg t.i.d. to her current medications and observe her blood pressures overnight. My hope is to discharge her tomorrow after her infant is able to be discharged. I will not restart magnesium based on transaminitis alone, but will continue to follow her values until they are down trending. (3) Spontaneous vaginal delivery: Status: Acute Assessment and Plan: Appropriate course aside from preeclampsia related concerns. Plan day: 2
[2024-05-31] MEDS: LABETALOL HCL 100 MG TABLET 200 MG PO (20:46)
[2024-05-31 23:03] LABS: Basophils Percent Auto 0.3 % (0.0-3.0); Eosinophils Percent Auto 2.2 % (0.0-7.0); Hemoglobin* 12.4 gm/dL (12.0-16.0); Immature Granulocytes Pct Auto 0.3 %; Lymphocytes Percent Auto 11.6 % (20-44); Mean Corpuscular HGB Conc 33 gm/dL (32-36); Mean Corpuscular Hemoglobin 30 pg (26-34); Mean Corpuscular Volume 92 fL (80-100); Monocytes Percent Auto 6.3 % (0.0-11.0); Neutrophils Percent Auto 79.3 % (42.0-72.0); Platelet Count* 217 K/uL (140-440); RDW Coefficient of Variation % 14.2 % (11.5-15.5); Red Blood Count 4.12 m/uL (4.00-5.20); Slide Review Reflex Yes; White Blood Count* 11.14 K/uL (4.50-11.00)
[2024-05-31 23:04] LABS: Slide Review Acceptable Review (Acceptable)
[2024-05-31 23:12] LABS: Alanine Aminotransferase* 90 U/L (4-35); Aspartate Amino Transferase* 105 U/L (12-35); Blood Urea Nitrogen* 18 mg/dL (5-24); Creatinine* 0.9 mg/dL (0.5-1.5); Est. Creatinine Clearance* 70.22; Estimated Glomerular Filt Rate 89 ml/min
[2024-06-01] MEDS: IBUPROFEN 600 MG TABLET PO (01:48)
[2024-06-01 05:29] VITALS: BP 125/79; PULSE 78; RESP 16; TEMP 36.7; O2SAT 95
[2024-06-01 06:41] LABS: Hematocrit 40.1 % (33.0-51.0); Hemoglobin* 13.2 gm/dL (12.0-16.0); Mean Corpuscular HGB Conc 33 gm/dL (32-36); Mean Corpuscular Hemoglobin 31 pg (26-34); Mean Corpuscular Volume 93 fL (80-100); Platelet Count* 225 K/uL (140-440); Red Blood Count 4.31 m/uL (4.00-5.20)
[2024-06-01 06:52] LABS: Slide Review Reflex No
[2024-06-01 07:37] LABS: Alanine Aminotransferase* 100 U/L (4-35); Aspartate Amino Transferase* 91 U/L (12-35); Creatinine* 0.8 mg/dL (0.5-1.5); Estimated Glomerular Filt Rate 103 ml/min
[2024-06-01 09:07] VITALS: BP 122/80; PULSE 87; RESP 16; TEMP 36.6; O2SAT 95
[2024-06-01] MEDS: NIFEdipine 30 MG TAB.ER.24 PO (09:15)
[2024-06-01] MEDS: LABETALOL HCL 100 MG TABLET 200 MG PO ×2 (09:15→14:09)
[2024-06-01] MEDS: DOCUSATE SODIUM 100 MG CAPSULE PO (09:16)
--- NOTE | 2024-06-01 11:03 | PM.OBDSVD1 ---
DS: Providers Provider Time Seen by Provider: 09:00 Date Seen: 06/01/24 Date of admission: 05/27/24 15:08 Primary care physician: Not a Local Provider Admitting Clinician: Rosalee Amaya MD Attending Physician on discharge: Ne Morton MD Date of Discharge: 06/01/24 DS: Diagnosis Discharge Diagnosis (1) Spontaneous vaginal delivery: Status: Acute (2) Pre-eclampsia, severe: Status: Acute Exam Narrative: Exam Narrative: VITAL SIGNS: As noted above. GENERAL APPEARANCE: Alert, cooperative female in no acute distress. MOOD & AFFECT: Normal. HEART: Regular rate and rhythm without murmurs. LUNGS: Lungs are clear to auscultation bilaterally. No crackles, wheezes, or rhonchi. ABDOMEN: Soft, non-distended and nontender. Uterus well contracted at umbilicus. : Normal lochia. EXTREMITIES: Bilateral trace edema. Well perfused. Nontender. NEURO: Intact. Const: Vital Signs, click to edit/add: Vital Signs - 24 hr 05/31/24 12:47 05/31/24 12:51 05/31/24 17:00 Temperature 98.3 F 98.4 F Pulse Rate [Blood Pressure Cuff] 91 83 Respiratory Rate 14 16 Blood Pressure [Ri ght Arm] 151/84 H 139/84 146/75 H Pulse Oximetry 95 95 Oxygen Delivery Me thod Room Air Room Air 05/31/24 21:28 05/31/24 23:53 06/01/24 05:29 Temperature 98.3 F 98.2 F 98.1 F Pulse Rate [Blood Pressure Cuff] 92 91 78 Respiratory Rate 16 16 16 Blood Pressure [Ri ght Arm] 126/77 125/76 125/79 Pulse Oximetry 95 95 95 Oxygen Delivery Me thod Room Air Room Air Room Air 06/01/24 09:07 Temperature 98 F Pulse Rate [Blood Pressure Cuff] 87 Respiratory Rate 16 Blood Pressure [Ri ght Arm] 122/80 Pulse Oximetry 95 Oxygen Delivery Me thod OB - DS: Summary Hospital Course Hospital Course: The patient is a 29 year old G 1 P 1 at 36 0/7 weeks gestation that was admitted to the Center on 05/27/24 for induction of labor due to preeclampsia with severe features. She had an uncomplicated vaginal delivery. She delivered a viable male infant. She is breast feeding. Patient completed 24 hours of magnesium sulfate infusion for seizure prophylaxis. She was started on oral nifedipine 30 mg daily for management of elevated blood pressures. She has remained under observation inpatient for monitoring of blood pressures and transaminitis. Today, liver enzymes have remained stable and on a decreasing trend. No STRATEGIC DEBRIEFING SPECIALIST irritability symptoms. Stable to be discharged home today. Patient has been dealing with anxiety . She does feel much better today, she was able to sleep yesterday, she also utilized some Vistaril and this was very helpful. We have discussed alternatives for management such as therapy, medication. She feels like she would like to go back home in her environment to reassess her symptoms, she does have good support from family, her and her sister who is a nurse practitioner will be helping her with baby for the next couple weeks. Peripartum Data delivery method: Vaginal Laceration description: Perineal - 2nd Degree [place] Gender: Male Infant Discharge Plan: Home (eventually) Status at Discharge Functional status at discharge: independent ambulation Overall status at discharge: patient is progressing back to baseline Time Spent with Patient Time attestation: Total time spent providing and/or coordinating discharge services: Time spent: Less than 30 minutes Discharge Plan Discharge Disposition: Home, Self-Care Date of Admission: 05/27/24 15:08 Attending Provider on Discharge: Rosie Morton Primary Care Provider: Provider,Not a Local Condition: Stable Anticipated Discharge Date/Time: 06/01/24 Discharge Medications: New docusate sodium 100 mg Capsule 100 mg PO .two times daily PRNQty: 60 0RF nifedipine 30 mg tablet extended release 30 mg PO DAILY Qty: 30 1RF Continued DHA 200 mg capsule 200 mg PO DAILY Discontinued metoclopramide HCl [Reglan] 5 mg tablet 5 mg PO Q6H PRN (Reason: nausea and vomiting) Qty: 10 1RF aspirin [Adult Aspirin Regimen] 81 mg tablet,delayed release (DR/EC) 81 mg PO QDAY valacyclovir [Valtrex] 500 mg tablet 500 mg PO BID PRN Discharge Orders: Discharge Order (Routine); Ordered 06/01/24 Ordered By: Rosie Morton Patient Education: OB Care, OB Vaginal/Breast Feeding Additional Instructions: Measure blood pressures at home twice a day. Notify clinic if there are blood pressures persistently more than 150 systolics, 100s diastolics or if any symptoms such as headaches that do not go away with pain medication, visual changes such as dark spots in vision, pain in the upper abdomen-that moves towards the upper right side. Notify clinic if there are blood pressures persistently less than 90 seconds systolics, 50s diastolics or if there is any associated symptoms such as lightheadedness, dizziness, shortness of breath, heart palpitations. Follow-up in clinic in 3-5 days after discharge for blood pressure check, review of antihypertensive medication regimen. Follow-up in clinic in 2 weeks for incision check and follow-up. Follow-up in 6 weeks in clinic for regular visit. Notify clinic if there is swelling that is significantly worse on one side of the lower extremities, mostly if it is also associated with pain in the calf and/or skin changes such as redness. Activity Level: Activity as Tolerated and No strenuous activity Discharge Diet: Regular Follow Up Appointments: [facility] [Provider Group] Forms: [employer] Info Instructions
[2024-06-01 13:01] VITALS: BP 113/63; RESP 18
[2024-06-01] MEDS: ACETAMINOPHEN 500 MG TABLET 1000 MG PO (13:04)
[2024-06-01 14:00] VITALS: BP 122/80
== END 2024-06-01 15:05 | disposition home or self-care (01) | DRG 560 ==
LOC: OB OUT 15:09 → OB 15:09
PROVIDERS: Midwife; Obstetrics & Gynecology; Admitting Provider Obstetrics & Gynecology; Visit Provider Obstetrics & Gynecology
DX: O14.14 Severe pre-eclampsia complicating childbirth (principal); Z3A.35 35 weeks gestation of pregnancy; Z37.0 Single live birth; O99.214 Obesity complicating childbirth; G43.909 Migraine, unspecified, not intractable, without status migrainosus; Z86.59 Personal history of other mental and behavioral disorders; O99.345 Other mental disorders complicating the puerperium; F41.9 Anxiety disorder, unspecified; Z86.19 Personal history of other infectious and parasitic diseases
CPT/HCPCS: 36415; 59200; 82565; 82570; 83735; 84156; 84450; 84460; 84520; 85018; 85025; 85027; 86592; 86850; 86900; 86901; 87081; 87653; 88307; A9270; C1726; J0702; J2003; J3010; J3370; J3475; J7030; J7120

== ENCOUNTER 2024-06-03 10:37 | Outpatient (CLI) | payer BC, SELFPAY | END 2024-06-03 10:38 | disposition home or self-care (01) | LOC: NFLDREF 06-06 17:17 | PROVIDERS: Visit Provider Obstetrics & Gynecology | DX: O14.15 Severe pre-eclampsia, complicating the puerperium (principal) | CPT/HCPCS: 82565; 84450; 84460 ==

== ENCOUNTER 2024-06-10 15:24 | Outpatient (CLI) | payer BC, SELFPAY | END 2024-06-10 15:25 | disposition home or self-care (01) | PROVIDERS: Visit Provider Registered Nurse | DX: Z39.2 Encounter for routine postpartum follow-up (principal) | CPT/HCPCS: 84450; 84460 ==

== ENCOUNTER 2024-07-15 15:09 | Outpatient (CLI) | payer BC, SELFPAY ==
--- NOTE | 2024-07-15 16:56 | P.LACCB_ITS ---
Consult Note - Mom Date of Visit Date of visit: 07/15/24 Reason for consultation: Assistance Needed and Infant with Special Needs (late ) Visit Code: Visit Patient's Information Phone number: [phone] : 1 Para: 1 Allergies amoxicillin Allergy (Mild, Verified 07/08/24 08:15) Rash Mother's medical history: Other (gestational HTN; resolved and mom reports she is doing well) Mother's Medical History: Medical History (Updated 06/09/24 @ 00:01 by Background Daemon) Pre-eclampsia, severe ?O14.10 - Severe pre-eclampsia, unspecified trimester (ICD-10) delivery ?O60.10X0 - labor with delivery, unspecified trimester, not applicable or unspecified (ICD-10) ADHD (attention deficit hyperactivity disorder) ?F90.9 - Attention-deficit hyperactivity disorder, unspecified type (ICD-10) Migraine ?G43.909 - Migraine, unspecified, not intractable, without status migrainosus (ICD-10) H/O cold sores ?Z86.19 - Personal history of other infectious and parasitic diseases (ICD- 10) Work Plans: not sure at this point; currently home with baby Delivery Information Delivery type: Vaginal Gestational Age: 35+3 Gestational Weight For Age: AGA Weight: 2.37 kg Baby's Information Baby's Age at Visit: 1m 18d Baby's Provider or Clinic: [facility] Jaundice: No Past Experience Past Experience: No Current Frequency of Day Feedings: every 2-3 hours Frequency of Night Feedings: every 4 hours at night Both Breasts: Yes (sometimes) Suck: strong per mom Latch: takes a bit to get him on, then seems good Length of Time: 30-60 min on one breast sometimes Goals: 1 year Pumping Pumping: Yes Quantity Pumped: about 2 oz ea br q2-3 hours, sometimes gets busy and not pump as often Supplementing EBM Supplement: Yes (can take 3-4 oz every 2-3 hours, has taken 5 oz in a feeding) Formula Supplement: Yes Baby Elimination Number of Wet Diapers a Day: ea feeding Number of BM a Day: 5-6 a day minimum; yellow, seedy Breast/Nipple Condition Breast Information: Breasts are symmetrical with rounded lower quadrants, intramammary distance is less than 1.5 inches. No erythema. Nipples are supple, everted prior to feeding. Breast Shape: Pendulous and Pliable Engorgement: No Maternal Nipple Condition - Left: Common Nipple Maternal Nipple Condition - Right: Common Nipple Sore Nipples: No Baby Assessment Skin: Normal Tongue/frenulum: Normal/elastic Palate: Average Lips: Relaxed and Symmetrical Jaw Alignment: Symmetrical Mucosa: [place], moist Onsite Observation Pre-Feed weight: 3.662 kg (up 712 gms in 17 days) Post-Feed weight: 3.714 kg Milk Transferred (mL): 52 (15 min on LEFT breast; 10 on RIGHT but had a harder time latching to this side) Position: Cross cradle Attachment/latch-on achieved: With difficulty Suck pattern: Suck burst and normal rest Swallow: Audible, consistent Behavior following feed: Alert, fussy Pre-Nursing Left Nipple: Within Normal Limits Pre-Nursing Right Nipple: Within Normal Limits Post-Nursing Left Nipple: Within Normal Limits Post-Nursing Right Nipple: Within Normal Limits Assessments/Interventions Assessments/Interventions: Worked with mom to get baby latched more deeply to the breast; given the size of her breast (large) he does need help getting on deeply . Showed her how to scoop under her breast and make a breast sandwich to give him an easier target to get latched on. Also due to the size of her breast, she may need to support her breast to allow him to maintain his sock lining examiner. When he gets sleepy at the breast, breast compression may help him intake more milk and stay engaged in the feeding. Offering both breasts at each feeding for 10-15 minutes will get him more milk than 30-60 min on one breast alone. Education provided: Early feeding cues to maximize timing of latching, Asymmetric latch technique for wide/deep latch to increase milk, Transfer for baby and increase comfort for mom, Supply/demand nature of milk supply, Need for frequent stimulation/milk removal and Pumping for milk management Feeding Plan: Breastfeed for 10-15 on each breast at least every other feeding if able, more if she would like; listening for active swallowing. Pump both breasts for: 15-20 minutes after each feeding if he needs a supplement to help increase her supply; a full 20 minutes if pumping instead of One Power Pump session in the morning may be helpful to build supply as well Feed baby 1 oz of pumped milk if he still acts hungry after ; more if needed but 1 oz at a time using paced bottle feeding to slow down the flow for him. Discussed expect him to need 22-23 oz/milk/day; more is ok if needed but to advance this slowly Follow-Up Suggested follow up: Appointment as needed (Discussed a follow up in 2-3 weeks when he is nursing more to assess progress) Time Spent Time spent with patient (min): 90 Meds Home Medications and Allergies Home Medications ?Medication ?Instructions ?Recorded ?Confirmed ?Type docosahexaenoic acid 200 mg 200 mg PO DAILY 01/20/24 06/10/24 History capsule ( [facility]) Allergies Allergy/AdvReac Type Severity Reaction Status Date / Time amoxicillin Allergy Mild Rash Verified 07/08/24 08:15
== END 2024-07-15 15:10 | disposition home or self-care (01) ==
LOC: OB LAC 15:10
PROVIDERS: Visit Provider Obstetrics & Gynecology
DX: Z39.1 Encounter for care and examination of lactating mother (principal)
CPT/HCPCS: G0463

== ENCOUNTER 2024-10-04 12:20 | Outpatient (CLI) | payer BC, SELFPAY ==
[2024-10-06 06:33] LABS: HPV Source Cervix; HPV, High Risk by TMA Not Detected
== END 2024-10-04 12:21 | disposition home or self-care (01) ==
PROVIDERS: Visit Provider Registered Nurse
DX: Z12.4 Encounter for screening for malignant neoplasm of cervix (principal); Z13.6 Encounter for screening for cardiovascular disorders
CPT/HCPCS: 80061; 87624; 87625; 88141; 88142

== ENCOUNTER 2024-11-18 09:00 | Outpatient (RCR) | payer SELFPAY | END 2025-03-18 23:59 | disposition home or self-care (01) | PROVIDERS: Visit Provider Registered Nurse | DX: M54.9 Dorsalgia, unspecified (principal); Z51.89 Encounter for other specified aftercare | CPT/HCPCS: 97110; 97140; 97162 ==

== ENCOUNTER 2025-01-10 13:17 | Outpatient (CLI) | payer BC, SELFPAY | END 2025-01-10 13:18 | disposition home or self-care (01) | PROVIDERS: PCP Family Medicine; Visit Provider Family Medicine | DX: F41.9 Anxiety disorder, unspecified (principal); R53.83 Other fatigue | CPT/HCPCS: 80053; 84443 ==